=== PATIENT | male | born 1970 | race Caucasian/White ===

== ENCOUNTER 2017-01-16 09:37 | Inpatient (IN) | payer OTHER ==
[2017-01-16 10:49] VITALS: BMI 21.6
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
[2017-01-16] MEDS ORDERED: MAGNESIUM CITRATE 300 ML BOTTLE PO PRN (12:41)
[2017-01-16] MEDS ORDERED: MAG HYDROX/AL HYDROX/SIMETH 30 ML UNIT-DOSE CUP PO PRN (12:41)
[2017-01-16] MEDS ORDERED: IBUPROFEN 400 MG TABLET (FP) PO PRN (12:41)
[2017-01-16] MEDS ORDERED: diphenhydrAMINE HCL 50 MG CAPSULE PO PRN (12:41)
[2017-01-16] MEDS ORDERED: MENTHOL/PHENOL 1 EACH UD MM PRN (12:41)
[2017-01-16] MEDS ORDERED: hydrOXYzine PAMOATE 25 MG CAPSULE (FP) PO PRN (12:41)
[2017-01-16] MEDS ORDERED: MAGNESIUM HYDROX 2400MG/30ML ORAL SUSPENSION 30 ML CUP PO PRN (12:41)
[2017-01-16] MEDS ORDERED: LOPERAMIDE HCL 2 MG CAPSULE PO PRN (12:41)
[2017-01-16] MEDS ORDERED: chlordiazePOXIDE HCL 25 MG CAPSULE PO PRN (12:41)
[2017-01-16] MEDS ORDERED: ACETAMINOPHEN 325 MG TABLET (FP) PO PRN (12:41)
[2017-01-16] MEDS ORDERED: NICOTINE POLACRILEX 2 MG GUM BUC PRN (12:41)
[2017-01-16] MEDS ORDERED: guaiFENesin/D-METHORPHAN HB 10 ML UNIT-DOSE CUPS PO PRN (12:41)
[2017-01-16] MEDS ORDERED: P-EPHED 60MG/TRIPROLIDI 2.5MG TABLET PO PRN (12:41)
[2017-01-16] MEDS ORDERED: chlordiazePOXIDE HCL 25 MG CAPSULE PO ONE (13:13)
[2017-01-16] MEDS: NICOTINE 14 MG/24 HOURS TOPICAL PATCH TD SCH (13:53)
[2017-01-16] MEDS: PANTOPRAZOLE 40 MG TABLET (FP) PO SCH (13:55)
[2017-01-16 16:18] LABS: URINE APPEARANCE CLEAR; URINE BILIRUBIN NEGATIVE (NEGATIVE); URINE BLOOD NEGATIVE (NEGATIVE); URINE COLOR STRAW; URINE GLUCOSE (UA) NEGATIVE (NEGATIVE); URINE KETONE NEGATIVE (NEGATIVE); URINE LEUK ESTERASE NEGATIVE (NEGATIVE); URINE NITRITE NEGATIVE (NEGATIVE); URINE PROTEIN NEGATIVE (NEGATIVE); URINE UROBILINOGEN NEGATIVE E.U./dl (0.2-1.0)
[2017-01-16] MEDS: chlordiazePOXIDE HCL 25 MG CAPSULE PO SCH ×2 (16:57→22:24)
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
[2017-01-16] MEDS: ZOLPIDEM TARTRATE 10 MG TABLET (PARK CARE ONLY) PO PRN (22:24)
[2017-01-16] MEDS: THIAMINE HCL 100 MG TABLET (FP) PO SCH (22:24)
[2017-01-17] MEDS: chlordiazePOXIDE HCL 25 MG CAPSULE PO SCH ×4 (05:37→22:16)
[2017-01-17] MEDS ORDERED: HYDROCORTISONE 0.5% TOPICAL OINTMENT TUBE TP PRN (07:25)
--- NOTE | 2017-01-17 08:51 | PN ---
S CIWA - CIWA Score Nausea/Vomitin-Mild Nausea/No Vomiting Muscle Tremors: 3 Anxiety: 4-Mod. Anxious/Guarded Agitation: 4-Moderately Restless Paroxysmal Sweats: 3 Orientation: 0-Oriented Tacttile Disturbances: 0-None Auditory Disturbances: 0-None Visual Disturbances: 0-None Headache: 0-None Present CIWA-Ar Total Score: 15 BHS Progress Note (SOAP) Subjective: Anxiety,tremors,sweating,interrupted sleep,restless Objective: 01/17/17 08:50 Vital Signs - 8 hr 01/17/17 01/17/17 03:38 06:28 Temperature 96.5 F L Pulse Rate 83 Respiratory 18 18 Rate Blood Pressure 106/70 Laboratory Last Values POC Glucometer 95 UNITS (()) 01/16/17 11:17 Urine Color Straw 01/16/17 14:00 Urine Appearance Clear 01/16/17 14:00 Urine pH 5.0 (5.0-8.0) 01/16/17 14:00 Ur Specific [place] <= 1.005 (1.005-1.025) 01/16/17 14:00 Urine Protein Negative (NEGATIVE) 01/16/17 14:00 Urine Glucose (UA) Negative (NEGATIVE) 01/16/17 14:00 Urine Ketones Negative (NEGATIVE) 01/16/17 14:00 Urine Blood Negative (NEGATIVE) 01/16/17 14:00 Urine Nitrite Negative (NEGATIVE) 01/16/17 14:00 Urine Bilirubin Negative (NEGATIVE) 01/16/17 14:00 Urine Urobilinogen Negative E.U./dl (0.2-1.0) 01/16/17 14:00 Ur Leukocyte Esterase Negative (NEGATIVE) 01/16/17 14:00 labs noted Assessment: 01/17/17 08:51 Withdrawal sx. Plan: Continue detox
[2017-01-17 10:24] LABS: MCH 28.1 pg (25.7-33.7); MCHC 32.9 g/dl (32.0-35.9); MEAN CELL VOLUME 85.3 fl (80-96); MEAN PLT VOLUME 9.6 fl (7.5-11.1); PLATELET COUNT 216 K/MM3 (134-434); RDW 14.2 % (11.9-15.9); WHITE BLOOD COUNT 4.7 K/mm3 (4.0-10.0)
[2017-01-17] MEDS: PRENATAL VITAMINS W/ FOLIC ACID TABLET (FP) PO SCH (10:26)
[2017-01-17] MEDS: PANTOPRAZOLE 40 MG TABLET (FP) PO SCH (10:26)
[2017-01-17] MEDS: NICOTINE 14 MG/24 HOURS TOPICAL PATCH TD SCH (10:26)
[2017-01-17 11:02] LABS: ALBUMIN 3.7 g/dl (3.4-5.0); ALK PHOS 94 U/L (45-117); ANION GAP 13 (8-16); BILIRUBIN,TOTAL 0.7 mg/dL (0.2-1.0); CALCIUM 8.9 mg/dL (8.5-10.1); CO2 25 mmol/L (21-32); COCKROFT - GAULT 80.85; GLUCOSE,RANDOM 82 mg/dL (74-106); SGOT/AST 37 U/L (15-37); SGPT/ALT 36 U/L (12-78); TOT PROT 8.2 g/dl (6.4-8.2)
--- NOTE | 2017-01-17 17:22 | EKG ---
Test Reason : Blood Pressure : / mmHG Vent. Rate : 078 BPM Atrial Rate : 078 BPM P-R Int : 132 ms QRS Dur : 096 ms QT Int : 384 ms P-R-T Axes : 058 070 070 degrees QTc Int : 437 ms NORMAL SINUS RHYTHM MINIMAL VOLTAGE CRITERIA FOR LVH, MAY BE NORMAL VARIANT NONSPECIFIC T WAVE ABNORMALITY ABNORMAL ECG NO PREVIOUS ECGS AVAILABLE Confirmed by EVERETTE DA SILVA MD ([id number]) on 01/17/2017 5:21:59 PM Referred By: Confirmed By:EVERETTE DA SILVA MD
[2017-01-17] MEDS: THIAMINE HCL 100 MG TABLET (FP) PO SCH (22:16)
[2017-01-17] MEDS: BACITRACIN 0.9 GM PACKET TP SCH (22:16)
[2017-01-17] MEDS: ZOLPIDEM TARTRATE 10 MG TABLET (PARK CARE ONLY) PO PRN (22:17)
[2017-01-18] MEDS: chlordiazePOXIDE HCL 25 MG CAPSULE PO SCH ×2 (05:49→10:27)
[2017-01-18] MEDS: PRENATAL VITAMINS W/ FOLIC ACID TABLET (FP) PO SCH (10:27)
[2017-01-18] MEDS: NICOTINE 14 MG/24 HOURS TOPICAL PATCH TD SCH (10:27)
[2017-01-18] MEDS: PANTOPRAZOLE 40 MG TABLET (FP) PO SCH (10:27)
[2017-01-18] MEDS: BACITRACIN 0.9 GM PACKET TP SCH ×2 (10:27→22:20)
--- NOTE | 2017-01-18 10:36 | PN ---
[facility] CIWA - CIWA Score Nausea/Vomitin Muscle Tremors: 3 Anxiety: 3 Agitation: 2 Paroxysmal Sweats: 1-Minimal Palms Moist Orientation: 0-Oriented Tacttile Disturbances: 1-Very Mild Itch/Numbness Auditory Disturbances: 1-Very Mild Visual Disturbances: 1-Very Mild Sensitivity Headache: 2-Mild CIWA-Ar Total Score: 17 S Progress Note (SOAP) Subjective: ALERT,IRRITABLE,ANXIOUS,INTERRUPTED SLEEP,TREMOR,OLD INJURY OF RIGHT KNEE WITH RIGHT KNEE PAIN Objective: 01/18/17 10:34 Vital Signs Temperature 96.5 F L 01/18/17 10:02 Pulse Rate 81 01/18/17 10:02 Respiratory Rate 18 01/18/17 10:02 Blood Pressure 123/73 01/18/17 10:02 O2 Sat by Pulse Oximetry (%) Laboratory Last Values WBC 4.7 K/mm3 (4.0-10.0) 01/17/17 06:00 RBC 4.83 M/mm3 (4.00-5.60) 01/17/17 06:00 Hgb 13.6 GM/dL (11.7-16.9) 01/17/17 06:00 Hct 41.3 % (35.4-49) 01/17/17 06:00 MCV 85.3 fl (80-96) 01/17/17 06:00 MCHC 32.9 g/dl (32.0-35.9) 01/17/17 06:00 RDW 14.2 % (11.9-15.9) 01/17/17 06:00 Plt Count 216 K/MM3 (134-434) 01/17/17 06:00 MPV 9.6 fl (7.5-11.1) 01/17/17 06:00 Sodium 139 mmol/L (136-145) 01/17/17 06:00 Potassium 3.8 mmol/L (3.5-5.1) 01/17/17 06:00 Chloride 101 mmol/L (98-107) 01/17/17 06:00 Carbon Dioxide 25 mmol/L (21-32) 01/17/17 06:00 Anion Gap 13 (8-16) 01/17/17 06:00 BUN 10 mg/dL (7-18) 01/17/17 06:00 Creatinine 1.0 mg/dL (0.7-1.3) 01/17/17 06:00 Creat Clearance w eGFR > 60 (>60) 01/17/17 06:00 POC Glucometer 95 UNITS (()) 01/16/17 11:17 Random Glucose 82 mg/dL (74-106) 01/17/17 06:00 Calcium 8.9 mg/dL (8.5-10.1) 01/17/17 06:00 Total Bilirubin 0.7 mg/dL (0.2-1.0) D 01/17/17 06:00 AST 37 U/L (15-37) D 01/17/17 06:00 ALT 36 U/L (12-78) D 01/17/17 06:00 Alkaline Phosphatase 94 U/L (45-117) D 01/17/17 06:00 Total Protein 8.2 g/dl (6.4-8.2) 01/17/17 06:00 Albumin 3.7 g/dl (3.4-5.0) 01/17/17 06:00 Urine Color Straw 01/16/17 14:00 Urine Appearance Clear 01/16/17 14:00 Urine pH 5.0 (5.0-8.0) 01/16/17 14:00 Ur Specific [place] <= 1.005 (1.005-1.025) 01/16/17 14:00 Urine Protein Negative (NEGATIVE) 01/16/17 14:00 Urine Glucose (UA) Negative (NEGATIVE) 01/16/17 14:00 Urine Ketones Negative (NEGATIVE) 01/16/17 14:00 Urine Blood Negative (NEGATIVE) 01/16/17 14:00 Urine Nitrite Negative (NEGATIVE) 01/16/17 14:00 Urine Bilirubin Negative (NEGATIVE) 01/16/17 14:00 Urine Urobilinogen Negative E.U./dl (0.2-1.0) 01/16/17 14:00 Ur Leukocyte Esterase Negative (NEGATIVE) 01/16/17 14:00 RPR Titer Nonreactive (NONREACTIVE) 01/17/17 06:00 Assessment: 01/18/17 10:35 WITHDRAWAL SYMPTOM Plan: CONTINUE DETOX,CANE FOR AMBULATORY AID
[2017-01-18] MEDS: chlordiazePOXIDE 5 MG CAPSULE PO SCH ×2 (17:32→22:20)
[2017-01-18] MEDS: ZOLPIDEM TARTRATE 10 MG TABLET (PARK CARE ONLY) PO PRN (22:20)
[2017-01-18] MEDS: THIAMINE HCL 100 MG TABLET (FP) PO SCH (22:20)
[2017-01-19] MEDS: chlordiazePOXIDE 5 MG CAPSULE PO SCH ×2 (05:24→10:32)
[2017-01-19] MEDS: PANTOPRAZOLE 40 MG TABLET (FP) PO SCH (10:30)
[2017-01-19] MEDS: NICOTINE 14 MG/24 HOURS TOPICAL PATCH TD SCH (10:30)
[2017-01-19] MEDS: PRENATAL VITAMINS W/ FOLIC ACID TABLET (FP) PO SCH (10:30)
[2017-01-19] MEDS: BACITRACIN 0.9 GM PACKET TP SCH ×2 (10:30→22:20)
--- NOTE | 2017-01-19 10:36 | PN ---
BHS Progress Note (SOAP) Subjective: Sweating,interrupted sleep,restless, Objective: 01/19/17 10:34 Vital Signs - 8 hr 01/19/17 01/19/17 01/19/17 03:22 06:11 09:25 Temperature 96.4 F L 98.9 F Pulse Rate 77 82 Respiratory 18 16 18 Rate Blood Pressure 114/77 123/80 Laboratory Last Values WBC 4.7 K/mm3 (4.0-10.0) 01/17/17 06:00 RBC 4.83 M/mm3 (4.00-5.60) 01/17/17 06:00 Hgb 13.6 GM/dL (11.7-16.9) 01/17/17 06:00 Hct 41.3 % (35.4-49) 01/17/17 06:00 MCV 85.3 fl (80-96) 01/17/17 06:00 MCHC 32.9 g/dl (32.0-35.9) 01/17/17 06:00 RDW 14.2 % (11.9-15.9) 01/17/17 06:00 Plt Count 216 K/MM3 (134-434) 01/17/17 06:00 MPV 9.6 fl (7.5-11.1) 01/17/17 06:00 Sodium 139 mmol/L (136-145) 01/17/17 06:00 Potassium 3.8 mmol/L (3.5-5.1) 01/17/17 06:00 Chloride 101 mmol/L (98-107) 01/17/17 06:00 Carbon Dioxide 25 mmol/L (21-32) 01/17/17 06:00 Anion Gap 13 (8-16) 01/17/17 06:00 BUN 10 mg/dL (7-18) 01/17/17 06:00 Creatinine 1.0 mg/dL (0.7-1.3) 01/17/17 06:00 Creat Clearance w eGFR > 60 (>60) 01/17/17 06:00 POC Glucometer 99 UNITS (()) 01/19/17 05:24 Random Glucose 82 mg/dL (74-106) 01/17/17 06:00 Calcium 8.9 mg/dL (8.5-10.1) 01/17/17 06:00 Total Bilirubin 0.7 mg/dL (0.2-1.0) D 01/17/17 06:00 AST 37 U/L (15-37) D 01/17/17 06:00 ALT 36 U/L (12-78) D 01/17/17 06:00 Alkaline Phosphatase 94 U/L (45-117) D 01/17/17 06:00 Total Protein 8.2 g/dl (6.4-8.2) 01/17/17 06:00 Albumin 3.7 g/dl (3.4-5.0) 01/17/17 06:00 Urine Color Straw 01/16/17 14:00 Urine Appearance Clear 01/16/17 14:00 Urine pH 5.0 (5.0-8.0) 01/16/17 14:00 Ur Specific [place] <= 1.005 (1.005-1.025) 01/16/17 14:00 Urine Protein Negative (NEGATIVE) 01/16/17 14:00 Urine Glucose (UA) Negative (NEGATIVE) 01/16/17 14:00 Urine Ketones Negative (NEGATIVE) 01/16/17 14:00 Urine Blood Negative (NEGATIVE) 01/16/17 14:00 Urine Nitrite Negative (NEGATIVE) 01/16/17 14:00 Urine Bilirubin Negative (NEGATIVE) 01/16/17 14:00 Urine Urobilinogen Negative E.U./dl (0.2-1.0) 01/16/17 14:00 Ur Leukocyte Esterase Negative (NEGATIVE) 01/16/17 14:00 RPR Titer Nonreactive (NONREACTIVE) 01/17/17 06:00 labs noted Assessment: 01/19/17 10:35 Withdrawal sx. Plan: Continue detox
[2017-01-19] MEDS: chlordiazePOXIDE HCL 10 MG CAPSULE PO SCH ×2 (17:27→22:20)
[2017-01-19 22:01] VITALS: PULSE 82
[2017-01-19] MEDS: ZOLPIDEM TARTRATE 10 MG TABLET (PARK CARE ONLY) PO PRN (22:20)
[2017-01-19] MEDS: THIAMINE HCL 100 MG TABLET (FP) PO SCH (22:20)
[2017-01-20] MEDS: chlordiazePOXIDE HCL 10 MG CAPSULE PO SCH (05:37)
[2017-01-20 06:15] VITALS: BP 116/72; TEMP 98
--- NOTE | 2017-01-20 14:21 | DS ---
[facility] Detox Discharge Summary Admission Date: 01/16/17 Discharge Date: 01/20/17 - History Present History: Alcohol Dependence Pertinent Past History: GERD - Physical Exam Results Vital Signs: Vital Signs Temperature 98 F 01/20/17 06:14 Pulse Rate 82 01/20/17 06:14 Respiratory Rate 16 01/20/17 06:14 Blood Pressure 116/72 01/20/17 06:14 O2 Sat by Pulse Oximetry (%) Pertinent Admission Physical Exam Findings: Withdrawal sx. Laboratory Last Values WBC 4.7 K/mm3 (4.0-10.0) 01/17/17 06:00 RBC 4.83 M/mm3 (4.00-5.60) 01/17/17 06:00 Hgb 13.6 GM/dL (11.7-16.9) 01/17/17 06:00 Hct 41.3 % (35.4-49) 01/17/17 06:00 MCV 85.3 fl (80-96) 01/17/17 06:00 MCHC 32.9 g/dl (32.0-35.9) 01/17/17 06:00 RDW 14.2 % (11.9-15.9) 01/17/17 06:00 Plt Count 216 K/MM3 (134-434) 01/17/17 06:00 MPV 9.6 fl (7.5-11.1) 01/17/17 06:00 Sodium 139 mmol/L (136-145) 01/17/17 06:00 Potassium 3.8 mmol/L (3.5-5.1) 01/17/17 06:00 Chloride 101 mmol/L (98-107) 01/17/17 06:00 Carbon Dioxide 25 mmol/L (21-32) 01/17/17 06:00 Anion Gap 13 (8-16) 01/17/17 06:00 BUN 10 mg/dL (7-18) 01/17/17 06:00 Creatinine 1.0 mg/dL (0.7-1.3) 01/17/17 06:00 Creat Clearance w eGFR > 60 (>60) 01/17/17 06:00 POC Glucometer 89 UNITS (()) 01/20/17 05:37 Random Glucose 82 mg/dL (74-106) 01/17/17 06:00 Calcium 8.9 mg/dL (8.5-10.1) 01/17/17 06:00 Total Bilirubin 0.7 mg/dL (0.2-1.0) D 01/17/17 06:00 AST 37 U/L (15-37) D 01/17/17 06:00 ALT 36 U/L (12-78) D 01/17/17 06:00 Alkaline Phosphatase 94 U/L (45-117) D 01/17/17 06:00 Total Protein 8.2 g/dl (6.4-8.2) 01/17/17 06:00 Albumin 3.7 g/dl (3.4-5.0) 01/17/17 06:00 Urine Color Straw 01/16/17 14:00 Urine Appearance Clear 01/16/17 14:00 Urine pH 5.0 (5.0-8.0) 01/16/17 14:00 Ur Specific [place] <= 1.005 (1.005-1.025) 01/16/17 14:00 Urine Protein Negative (NEGATIVE) 01/16/17 14:00 Urine Glucose (UA) Negative (NEGATIVE) 01/16/17 14:00 Urine Ketones Negative (NEGATIVE) 01/16/17 14:00 Urine Blood Negative (NEGATIVE) 01/16/17 14:00 Urine Nitrite Negative (NEGATIVE) 01/16/17 14:00 Urine Bilirubin Negative (NEGATIVE) 01/16/17 14:00 Urine Urobilinogen Negative E.U./dl (0.2-1.0) 01/16/17 14:00 Ur Leukocyte Esterase Negative (NEGATIVE) 01/16/17 14:00 RPR Titer Nonreactive (NONREACTIVE) 01/17/17 06:00 labs noted - Treatment Hospital Course: Detox Protocol Followed, Detoxed Safely, Responded well, Discharged Condition Good, Rehab Referral Accepted Patient has Accepted a Rehab Referral to: Rehab at [facility] - Medication Discharge Medications: Ambulatory Orders Esomeprazole Mag Trihydrate [Nexium] 40 mg PO DAILY 07/18/12 - Diagnosis (1) Gastroesophageal reflux disease Status: Chronic (2) Cocaine dependence Status: Acute (3) Alcohol dependence with uncomplicated withdrawal Status: Acute - AMA Did Patient Leave Against Medical Advice: No
== END 2017-01-20 09:00 | disposition other institution (70) | DRG 774 ==
LOC: YASAS 09:37 → Y3N 12:50
PROVIDERS: ADMIT Internal Medicine; ATTEND Internal Medicine
PROC: HZ2ZZZZ Detoxification Services for Substance Abuse Treatment (ICD-10-PCS; principal; 2017-01-20)
DX: F10.230 Alcohol dependence with withdrawal, uncomplicated (principal); F14.20 Cocaine dependence, uncomplicated; F17.210 Nicotine dependence, cigarettes, uncomplicated; F32.9 Major depressive disorder, single episode, unspecified; G47.00 Insomnia, unspecified; G40.909 Epilepsy, unspecified, not intractable, without status epilepticus; K21.9 Gastro-esophageal reflux disease without esophagitis; E11.9 Type 2 diabetes mellitus without complications
CPT/HCPCS: 36415; 80053; 81003; 85027; 86593; 93005; 93010

== ENCOUNTER 2017-01-20 09:13 | Inpatient (IN) | payer OTHER ==
[2017-01-20 11:55] VITALS: BMI 21.9
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
[2017-01-20] MEDS ORDERED: MENTHOL/PHENOL 1 EACH UD MM PRN (13:52)
[2017-01-20] MEDS ORDERED: MAG HYDROX/AL HYDROX/SIMETH 30 ML UNIT-DOSE CUP PO PRN (13:52)
[2017-01-20] MEDS ORDERED: hydrOXYzine PAMOATE 50 MG CAPSULE (FP) PO PRN (13:52)
[2017-01-20] MEDS ORDERED: MAGNESIUM CITRATE 300 ML BOTTLE PO PRN (13:52)
[2017-01-20] MEDS ORDERED: ACETAMINOPHEN 325 MG TABLET (FP) PO PRN (13:52)
[2017-01-20] MEDS ORDERED: P-EPHED 60MG/TRIPROLIDI 2.5MG TABLET PO PRN (13:52)
[2017-01-20] MEDS ORDERED: IBUPROFEN 400 MG TABLET (FP) PO PRN (13:52)
[2017-01-20] MEDS ORDERED: guaiFENesin/D-METHORPHAN HB 10 ML UNIT-DOSE CUPS PO PRN (13:52)
[2017-01-20] MEDS ORDERED: LOPERAMIDE HCL 2 MG CAPSULE PO PRN (13:52)
[2017-01-20] MEDS ORDERED: MAGNESIUM HYDROX 2400MG/30ML ORAL SUSPENSION 30 ML CUP PO PRN (13:52)
[2017-01-20] MEDS: diphenhydrAMINE HCL 50 MG CAPSULE PO PRN (21:22)
[2017-01-20] MEDS: THIAMINE HCL 100 MG TABLET (FP) PO SCH (21:22)
[2017-01-21] MEDS: PRENATAL VITAMINS W/ FOLIC ACID TABLET (FP) PO SCH (09:55)
[2017-01-21] MEDS: PANTOPRAZOLE 40 MG TABLET (FP) PO SCH (09:55)
[2017-01-21] MEDS ORDERED: PNEUMOC 13-VAL CONJ-DIP CRM/PF 0.5 ML DISP.SYRIN IM ONE (17:00)
[2017-01-21] MEDS: THIAMINE HCL 100 MG TABLET (FP) PO SCH (21:23)
[2017-01-21] MEDS: diphenhydrAMINE HCL 50 MG CAPSULE PO PRN (22:46)
[2017-01-21] MEDS ORDERED: PT OWN MED DRAWER 7, Y5N ONE (23:22)
[2017-01-22 06:53] VITALS: TEMP 97.9
[2017-01-22] MEDS: PANTOPRAZOLE 40 MG TABLET (FP) PO SCH (10:02)
[2017-01-22] MEDS: PRENATAL VITAMINS W/ FOLIC ACID TABLET (FP) PO SCH (10:02)
[2017-01-22] MEDS: THIAMINE HCL 100 MG TABLET (FP) PO SCH (22:20)
[2017-01-22] MEDS: diphenhydrAMINE HCL 50 MG CAPSULE PO PRN (23:30)
[2017-01-23] MEDS: diphenhydrAMINE HCL 50 MG CAPSULE PO PRN (00:19)
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
[2017-01-23 06:55] VITALS: BP 113/82; PULSE 73
[2017-01-23] MEDS: PANTOPRAZOLE 40 MG TABLET (FP) PO SCH (10:05)
[2017-01-23] MEDS: PRENATAL VITAMINS W/ FOLIC ACID TABLET (FP) PO SCH (10:05)
[2017-01-23 11:09] LABS: HIV 1 & 2 AB PRELIMINARY POSITIVE; HIV 1 AGp24 NEGATIVE
[2017-01-23 14:37] LABS: URINE APPEARANCE CLEAR; URINE BILIRUBIN NEGATIVE (NEGATIVE); URINE BLOOD NEGATIVE (NEGATIVE); URINE COLOR LTYELLOW; URINE GLUCOSE (UA) NEGATIVE (NEGATIVE); URINE KETONE NEGATIVE (NEGATIVE); URINE LEUK ESTERASE NEGATIVE (NEGATIVE); URINE NITRITE NEGATIVE (NEGATIVE); URINE PROTEIN NEGATIVE (NEGATIVE); URINE UROBILINOGEN NEGATIVE E.U./dl (0.2-1.0)
--- NOTE | 2017-01-23 17:02 | PN ---
[facility] Progress Note Note: discussed the patient preliminary report on hiv is positive with patient and migel from formerly [facility] patient aware still waiting for confirmation report
[2017-01-23] MEDS ORDERED: traZODone HCL 100 MG TABLET (FP) PO SCH (22:00)
== END 2017-01-23 16:30 | disposition left against medical advice (07) | DRG 770 ==
LOC: YASAS 09:13 → Y3W 14:16
PROVIDERS: ADMIT Psychiatry & Neurology Psychiatry; ATTEND Psychiatry & Neurology Psychiatry
PROC: HZ42ZZZ Group Counseling for Substance Abuse Treatment, Cognitive-Behavioral (ICD-10-PCS; principal; 2017-01-20)
DX: F10.20 Alcohol dependence, uncomplicated (principal); F14.20 Cocaine dependence, uncomplicated; F17.210 Nicotine dependence, cigarettes, uncomplicated; F19.282 Other psychoactive substance dependence with psychoactive substance-induced sleep disorder; K21.9 Gastro-esophageal reflux disease without esophagitis; R73.03 Prediabetes; Z21 Asymptomatic human immunodeficiency virus [HIV] infection status; R26.2 Difficulty in walking, not elsewhere classified; Z99.89 Dependence on other enabling machines and devices
CPT/HCPCS: 36415; 81003; 87389

== ENCOUNTER 2017-12-02 10:41 | Inpatient (IN) | payer OTHER ==
[2017-12-02 10:52] VITALS: BMI 23.3
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
[2017-12-02] MEDS ORDERED: P-EPHED 60MG/TRIPROLIDI 2.5MG TABLET PO PRN (11:51)
[2017-12-02] MEDS ORDERED: MAGNESIUM CITRATE 300 ML BOTTLE PO PRN (11:51)
[2017-12-02] MEDS ORDERED: LOPERAMIDE HCL 2 MG CAPSULE PO PRN (11:51)
[2017-12-02] MEDS ORDERED: MAGNESIUM HYDROX 2400MG/30ML ORAL SUSPENSION 30 ML CUP PO PRN (11:51)
[2017-12-02] MEDS ORDERED: IBUPROFEN 400 MG TABLET (FP) PO PRN (11:51)
[2017-12-02] MEDS ORDERED: hydrOXYzine PAMOATE 25 MG CAPSULE (FP) PO PRN (11:51)
[2017-12-02] MEDS ORDERED: ACETAMINOPHEN 325 MG TABLET (FP) PO PRN (11:51)
[2017-12-02] MEDS ORDERED: chlordiazePOXIDE HCL 25 MG CAPSULE PO PRN (11:51)
[2017-12-02] MEDS ORDERED: MENTHOL/PHENOL 1 EACH UD MM PRN (11:51)
[2017-12-02] MEDS ORDERED: guaiFENesin/D-METHORPHAN HB 10 ML UNIT-DOSE CUPS PO PRN (11:51)
[2017-12-02] MEDS ORDERED: chlordiazePOXIDE HCL 25 MG CAPSULE PO ONE (14:00)
[2017-12-02] MEDS: chlordiazePOXIDE HCL 25 MG CAPSULE PO SCH ×2 (18:08→22:11)
[2017-12-02] MEDS: MELATONIN 5 MG TABLETS PO PRN (22:11)
[2017-12-02] MEDS: THIAMINE HCL 100 MG TABLET (FP) PO SCH (22:11)
[2017-12-03] MEDS: chlordiazePOXIDE HCL 25 MG CAPSULE PO SCH ×4 (05:39→22:00)
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
--- NOTE | 2017-12-03 10:05 | PN ---
S CIWA - CIWA Score Nausea/Vomitin-No Nausea/No Vomiting Muscle Tremors: 4-Moderate,w/Arms Extend Anxiety: 3 Agitation: 3 Paroxysmal Sweats: 2 Orientation: 0-Oriented Tacttile Disturbances: 0-None Auditory Disturbances: 0-None Visual Disturbances: 0-None Headache: 0-None Present CIWA-Ar Total Score: 12 BHS Progress Note (SOAP) Subjective: agitation sweats mild shakes body aches Objective: 12/03/17 10:05 Vital Signs Temperature 96.4 F L 12/03/17 05:56 Pulse Rate 68 12/03/17 05:56 Respiratory Rate 18 12/03/17 05:56 Blood Pressure 125/76 12/03/17 05:56 O2 Sat by Pulse Oximetry (%) labs pending aaox3 ambulating no acute distress Assessment: 12/03/17 10:16 withdrawal sx Plan: continue detox increase fluids labs pending
[2017-12-03] MEDS: PRENATAL VITAMINS W/ FOLIC ACID TABLET (FP) PO SCH (10:15)
[2017-12-03 10:59] LABS: HEMOGLOBIN 12.8 GM/dL (11.7-16.9); MCH 27.8 pg (25.7-33.7); MCHC 32.9 g/dl (32.0-35.9); MEAN CELL VOLUME 84.6 fl (80-96); MEAN PLT VOLUME 9.7 fl (7.5-11.1); PLATELET COUNT 174 K/MM3 (134-434); RBC 4.62 M/mm3 (4.00-5.60); WHITE BLOOD COUNT 3.3 K/mm3 (4.0-10.0)
[2017-12-03 11:08] LABS: ALBUMIN 3.2 g/dl (3.4-5.0); CALCIUM 8.5 mg/dL (8.5-10.1); CHLORIDE 106 mmol/L (98-107); POTASSIUM 3.9 mmol/L (3.5-5.1); SODIUM 140 mmol/L (136-145)
[2017-12-03 11:14] LABS: ALK PHOS 86 U/L (45-117); ANION GAP 4 (8-16); BLOOD UREA NITROGEN 14 mg/dL (7-18); CO2 30 mmol/L (21-32); CREATININE 0.9 mg/dL (0.7-1.3); GLUCOSE,RANDOM 88 mg/dL (74-106); SGOT/AST 20 U/L (15-37); SGPT/ALT 27 U/L (12-78); TOT PROT 7.3 g/dl (6.4-8.2)
[2017-12-03 11:16] LABS: BILIRUBIN,TOTAL < 0.1 mg/dL (0.2-1.0)
[2017-12-03] MEDS ORDERED: PNEUMOCOCCAL 23 VACCINE 0.5 ML VIAL IM ONE (12:00)
[2017-12-03] MEDS ORDERED: FLU VACCINE QUAD 60 MCG/0.5 ML (MDV 17-18) IM ONE (12:00)
[2017-12-03] MEDS ORDERED: PNEUMOC 13-VAL CONJ-DIP CRM/PF 0.5 ML DISP.SYRIN IM ONE (12:00)
--- NOTE | 2017-12-03 16:23 | EKG ---
Test Reason : Blood Pressure : / mmHG Vent. Rate : 075 BPM Atrial Rate : 075 BPM P-R Int : 130 ms QRS Dur : 082 ms QT Int : 398 ms P-R-T Axes : 008 -13 -09 degrees QTc Int : 444 ms NORMAL SINUS RHYTHM MODERATE VOLTAGE CRITERIA FOR LVH, MAY BE NORMAL VARIANT INFERIOR INFARCT , AGE UNDETERMINED ABNORMAL ECG Confirmed by MD USHA, EVELYN ([id number]) on 12/03/2017 4:23:14 PM Referred By: Confirmed By:EVELYN KERR MD
[2017-12-03] MEDS: THIAMINE HCL 100 MG TABLET (FP) PO SCH (22:00)
[2017-12-03] MEDS: traZODone HCL 100 MG TABLET (FP) PO SCH (22:00)
[2017-12-03] MEDS: MELATONIN 5 MG TABLETS PO PRN (22:01)
[2017-12-04] MEDS: chlordiazePOXIDE HCL 25 MG CAPSULE PO SCH ×2 (05:08→10:12)
[2017-12-04] MEDS: PRENATAL VITAMINS W/ FOLIC ACID TABLET (FP) PO SCH (10:12)
--- NOTE | 2017-12-04 14:10 | PN ---
S CIWA - CIWA Score Nausea/Vomitin-No Nausea/No Vomiting Muscle Tremors: None Anxiety: 4-Mod. Anxious/Guarded Agitation: 4-Moderately Restless Paroxysmal Sweats: No Perspiration Orientation: 0-Oriented Tacttile Disturbances: 2-Mild Itch/Numbness/Burn Auditory Disturbances: 0-None Visual Disturbances: 3-Moderate Sensitivity Headache: 4-Moderately Severe CIWA-Ar Total Score: 17 BHS Progress Note (SOAP) Subjective: Constipation, H/A, Body Aches, Fatigue. Objective: PATIENT A & O X 3, OBSERVED AMBULATING ON UNIT. NO ACUTE DISTRESS. 12/04/17 14:07 Vital Signs Temperature 99.1 F 12/04/17 13:14 Pulse Rate 80 12/04/17 13:14 Respiratory Rate 18 12/04/17 13:14 Blood Pressure 108/60 12/04/17 13:14 O2 Sat by Pulse Oximetry (%) Laboratory Tests 12/03/17 12/03/17 12/03/17 07:40 07:40 07:40 WBC 3.3 L RBC 4.62 Hgb 12.8 Hct 39.0 MCV 84.6 MCH 27.8 MCHC 32.9 RDW 14.0 Plt Count 174 MPV 9.7 Sodium 140 Potassium 3.9 Chloride 106 Carbon Dioxide 30 Anion Gap 4 L BUN 14 D Creatinine 0.9 Creat Clearance w eGFR > 60 Random Glucose 88 Calcium 8.5 Total Bilirubin < 0.1 L D AST 20 D ALT 27 D Alkaline Phosphatase 86 Total Protein 7.3 Albumin 3.2 L RPR Titer Nonreactive LABS NOTED. UA RESULTS PENDING. 12/04/17 14:09 Assessment: 12/04/17 14:08 WITHDRAWAL SYMPTOMS. Plan: CONTINUE DETOX. PRN MOM FOR CONSTIPATION. INCREASE DAILY PO FLUID INTAKE.
[2017-12-04] MEDS: PSYLLIUM 5.85 GM PACKET PO SCH ×2 (14:34→22:03)
[2017-12-04] MEDS: LIDOCAINE 5% TOPICAL PATCH TP SCH (14:35)
[2017-12-04] MEDS: chlordiazePOXIDE 5 MG CAPSULE PO SCH ×2 (17:36→22:05)
[2017-12-04] MEDS ORDERED: LIDOCAINE PATCH REMOVAL MC SCH (22:00)
[2017-12-04] MEDS: traZODone HCL 100 MG TABLET (FP) PO SCH (22:05)
[2017-12-04] MEDS: THIAMINE HCL 100 MG TABLET (FP) PO SCH (22:05)
[2017-12-04] MEDS: MELATONIN 5 MG TABLETS PO PRN (22:05)
[2017-12-04] MEDS: MAG HYDROX/AL HYDROX/SIMETH 30 ML UNIT-DOSE CUP PO PRN (22:07)
[2017-12-05] MEDS: chlordiazePOXIDE 5 MG CAPSULE PO SCH ×2 (05:34→10:23)
[2017-12-05] MEDS: PRENATAL VITAMINS W/ FOLIC ACID TABLET (FP) PO SCH (10:23)
[2017-12-05] MEDS: LIDOCAINE 5% TOPICAL PATCH TP SCH (10:23)
[2017-12-05] MEDS: PSYLLIUM 5.85 GM PACKET PO SCH (10:23)
--- NOTE | 2017-12-05 10:31 | PN ---
BHS Progress Note (SOAP) Subjective: SLIGHT ANXIETY,SWEATS, OOB WITH STEADY GAIT.. Objective: 12/05/17 10:31 Vital Signs Temperature 97.1 F L 12/05/17 09:08 Pulse Rate 80 12/05/17 09:08 Respiratory Rate 20 12/05/17 09:08 Blood Pressure 104/63 12/05/17 09:08 O2 Sat by Pulse Oximetry (%) Laboratory Last Values WBC 3.3 K/mm3 (4.0-10.0) L 12/03/17 07:40 RBC 4.62 M/mm3 (4.00-5.60) 12/03/17 07:40 Hgb 12.8 GM/dL (11.7-16.9) 12/03/17 07:40 Hct 39.0 % (35.4-49) 12/03/17 07:40 MCV 84.6 fl (80-96) 12/03/17 07:40 MCH 27.8 pg (25.7-33.7) 12/03/17 07:40 MCHC 32.9 g/dl (32.0-35.9) 12/03/17 07:40 RDW 14.0 % (11.9-15.9) 12/03/17 07:40 Plt Count 174 K/MM3 (134-434) 12/03/17 07:40 MPV 9.7 fl (7.5-11.1) 12/03/17 07:40 Sodium 140 mmol/L (136-145) 12/03/17 07:40 Potassium 3.9 mmol/L (3.5-5.1) 12/03/17 07:40 Chloride 106 mmol/L (98-107) 12/03/17 07:40 Carbon Dioxide 30 mmol/L (21-32) 12/03/17 07:40 Anion Gap 4 (8-16) L 12/03/17 07:40 BUN 14 mg/dL (7-18) D 12/03/17 07:40 Creatinine 0.9 mg/dL (0.7-1.3) 12/03/17 07:40 Creat Clearance w eGFR > 60 (>60) 12/03/17 07:40 Random Glucose 88 mg/dL (74-106) 12/03/17 07:40 Calcium 8.5 mg/dL (8.5-10.1) 12/03/17 07:40 Total Bilirubin < 0.1 mg/dL (0.2-1.0) L D 12/03/17 07:40 AST 20 U/L (15-37) D 12/03/17 07:40 ALT 27 U/L (12-78) D 12/03/17 07:40 Alkaline Phosphatase 86 U/L (45-117) 12/03/17 07:40 Total Protein 7.3 g/dl (6.4-8.2) 12/03/17 07:40 Albumin 3.2 g/dl (3.4-5.0) L 12/03/17 07:40 RPR Titer Nonreactive (NONREACTIVE) 12/03/17 07:40 Assessment: 12/05/17 10:31 WITHDRAWAL SX Plan: CONTINUE DETOX
[2017-12-05] MEDS: MAG HYDROX/AL HYDROX/SIMETH 30 ML UNIT-DOSE CUP PO PRN (12:48)
[2017-12-05] MEDS ORDERED: chlordiazePOXIDE HCL 10 MG CAPSULE PO SCH (17:00)
--- NOTE | 2017-12-05 21:54 | PN ---
[facility] Progress Note Note: INFORMED CLIENT SIGNING OUT AMA DUE TO FAMILY EMERGENCY. ALL ATTEMPT TO REDIRECT CLIENT AND TO ENCOURAGE TO COMPLETE TXMENT UNSUCCESSFUL. CLIENT SIGNED OUT AMA
--- NOTE | 2017-12-05 21:54 | DS ---
[facility] Detox Discharge Summary Admission Date: 12/02/17 Discharge Date: 12/05/17 - History Present History: Alcohol Dependence, Cocaine Dependence Pertinent Past History: HIV DM NICOTINE DEP SEIZURE D/O GERD - Physical Exam Results Vital Signs: Vital Signs Temperature 96.1 F L 12/05/17 16:59 Pulse Rate 75 12/05/17 16:59 Respiratory Rate 18 12/05/17 16:59 Blood Pressure 109/67 12/05/17 16:59 O2 Sat by Pulse Oximetry (%) Pertinent Admission Physical Exam Findings: WITHDRAWAL SX'S - Treatment Hospital Course: Discharged Condition Good - Medication Discharge Medications: Ambulatory Orders Esomeprazole Magnesium [Nexium 24Hr] 20 mg PO DAILY PRN 12/02/17 traZODone HCL [Desyrel -] 100 mg PO HS #30 tablet 12/03/17 - Diagnosis (1) Alcohol dependence with uncomplicated withdrawal Status: Chronic (2) Cocaine dependence Status: Chronic (3) Substance-induced sleep disorder Status: Chronic (4) Gastroesophageal reflux disease Status: Chronic (5) HIV antibody positive Status: Chronic (6) Nicotine dependence Status: Chronic Qualifiers: Nicotine product type: cigarettes Substance use status: uncomplicated Qualified Code(s): F17.210 - Nicotine dependence, cigarettes, uncomplicated (7) Osteoarthritis of right knee Status: Chronic Qualifiers: Osteoarthritis type: primary Qualified Code(s): M17.11 - Unilateral primary osteoarthritis, right knee (8) Seizure disorder Status: Chronic (9) type 2 dm Status: Chronic (10) History of seizure Status: Resolved - AMA Did Patient Leave Against Medical Advice: Yes
[2017-12-05 22:23] VITALS: BP 111/70; PULSE 97; TEMP 98
== END 2017-12-05 22:13 | disposition left against medical advice (07) | DRG 770 ==
LOC: YASAS 10:41 → Y3N 13:18
PROVIDERS: ADMIT Internal Medicine; ATTEND Internal Medicine
PROC: HZ2ZZZZ Detoxification Services for Substance Abuse Treatment (ICD-10-PCS; principal; 2017-12-02)
DX: F10.230 Alcohol dependence with withdrawal, uncomplicated (principal); F14.20 Cocaine dependence, uncomplicated; F17.210 Nicotine dependence, cigarettes, uncomplicated; F19.24 Other psychoactive substance dependence with psychoactive substance-induced mood disorder; F19.282 Other psychoactive substance dependence with psychoactive substance-induced sleep disorder; M17.11 Unilateral primary osteoarthritis, right knee; E11.9 Type 2 diabetes mellitus without complications; Z21 Asymptomatic human immunodeficiency virus [HIV] infection status; Z86.69 Personal history of other diseases of the nervous system and sense organs; R63.4 Abnormal weight loss; Z68.23 Body mass index [BMI] 23.0-23.9, adult
CPT/HCPCS: 36415; 80053; 85027; 86593; 90688; 90732; 93005; 93010; G0008; G0009

== ENCOUNTER 2018-04-27 19:10 | Emergency (ER) | payer OTHER ==
[2018-04-27 19:55] VITALS: BP 145/57; PULSE 78; TEMP 98.2; BMI 23.0
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
[2018-04-27] MEDS ORDERED: KETOROLAC TROMETHAMINE 30 MG/1 ML VIAL IVPUSH ONE (21:46)
[2018-04-27] MEDS ORDERED: METHOCARBAMOL 500 MG TABLET PO ONE (21:53)
[2018-04-27] MEDS ORDERED: BACITRACIN 15 GM TUBE TOPICAL OINTMENT TP ONE (22:04)
[2018-04-27] MEDS ORDERED: METHOCARBAMOL 500 MG TABLET ONE (22:05)
[2018-04-27] MEDS ORDERED: BACITRACIN 0.9 GM PACKET ONE ×2 (22:05→22:29)
[2018-04-27] MEDS ORDERED: KETOROLAC TROMETHAMINE 30 MG/1 ML VIAL ONE (22:06)
== END 2018-04-27 22:39 | disposition home or self-care (01) ==
LOC: JER 19:10
PROC: 3E0333Z Introduction of Anti-inflammatory into Peripheral Vein, Percutaneous Approach (ICD-10-PCS; principal; 2018-04-27)
DX: S29.012A Strain of muscle and tendon of back wall of thorax, initial encounter (principal); X50.0XXA Overexertion from strenuous movement or load, initial encounter; Y93.B2 Activity, push-ups, pull-ups, sit-ups; Y92.89 Other specified places as the place of occurrence of the external cause; Y99.8 Other external cause status; I10 Essential (primary) hypertension; E11.9 Type 2 diabetes mellitus without complications; S01.21XA Laceration without foreign body of nose, initial encounter; X58.XXXA Exposure to other specified factors, initial encounter; Y93.89 Activity, other specified
CPT/HCPCS: 71046-TC-FY; 96374; 99281-25